=== PATIENT | female | born 1990 | race Two or more races ===

== ENCOUNTER 2025-10-05 12:42 | Outpatient (AMB) | payer OTHER, SELFPAY ==
--- NOTE | 2025-10-05 13:14 | A.OFFVIS_ITS ---
Intake Visit Reasons: Numbness and tingling HPI Comments Details: The patient is a 35 year old female presenting for evaluation of new-onset symptoms which began approximately one and a half months ago. She reports a constant, daily pressure and a burning sensation affecting half of her head, which she likens to a blow dryer held close to the skin. Associated symptoms include pressure behind her left eye with visual disturbances, left-sided numbness and loss of strength, difficulty grasping objects, and a jittery sensation in her leg. She also notes scalp sensitivity to the point where she has cut her hair and sometimes wears a beanie for comfort. Ufhg-onp-hwztduq pain medications and a trial of gabapentin have not provided relief. She has a history of migraines, but notes her prior episodes were different, characterized by light sensitivity and vomiting, and were not as fr equent. For these symptoms, the patient went to an emergency room and had a brain MRI, which was reportedly normal aside from a nonspecific stain . She had an eye exam about a month and a half ago, which was normal. Both of her parents suffer from migraines. She has children and is not planning any future pregnancies. Review of Systems Narrative - Neurological: Reports daily headaches with pressure and a burning sensation on one half of the head. - Reports associated left-sided numbness, loss of strength, and a jittery feeling in her leg. - Reports scalp sensitivity. - Reports a history of migraines with photophobia and emesis. - Ophthalmologic: Reports pressure behind her left eye and visual disturbances during headache episodes. - Denies other vision problems when not experiencing pressure. - Psychiatric: Reports feeling nervous and anxious. Physical Exam Neuro Other: Mental Status: Alert and oriented to person, place, and time. Normal attention. Normal spontaneous speech, fluency, and comprehension. No obvious issues with mood and memory. Affect is appropriate. Cranial Nerves: CN II: Visual fallon full to confrontation, visual acuity intact. CN III, IV, : Pupils equal, round, reactive to light and accommodation. Extraocular movements are normal. CN V: Facial sensation is normal. CN VII: Facial movements symmetrical. CN VIII: Hearing intact to bedside conversation is normal. CN IX, X: Palate elevates symmetrically. CN XI: Shoulder shrug and head turn symmetrical. CN XII: Tongue midline without atrophy or fasciculations. Motor: Bulk and tone normal in all extremities. No significant muscle weakness in arms and legs. No drift. Reflexes: Deep tendon reflexes 2+ and symmetric. Plantar response down-going bilaterally. Coordination: Iagleo-ac-ijry and waej-qy-poic testing normal. No dysmetria. Gait and Station: No obvious gait abnormality. No ataxia or instability. Sensory: Intact to light touch, pinprick, and vibration. Romberg is negative. Extrapyramidal: Full facial expressions and blinking. No rigidity. Movements are appropriate with no tremor or abnormality. Speech: Normal; no dysarthria or tremor. Assessment & Plan Assessment & Plan (1) Migraine without aura: Comment: MRI brain WO at [facility] in Jul 2025: Small arachnoid cyst in the R post fossa (reported) Code(s): G43.009 - Migraine without aura, not intractable, without status migrainosus Category: Medical Qualifiers: Status migrainosus presence: with status migrainosus Intractability: intractable Qualified Code(s): G43.011 - Migraine without aura, intractable, with status migrainosus (2) Migraine equivalent syndrome: Code(s): G43.109 - Migraine with aura, not intractable, without status migrainosus Category: Medical (3) Anxiety: Code(s): F41.9 - Anxiety disorder, unspecified Category: Medical Plan Impression: a: Migraine b: Migraine equivalent syndrome Rec: a: Education b: Topiramate 25mg BID I explained to the patient that her symptoms, including the burning sensation, pressure, numbness, and weakness, are all manifestations of migraine, which can present in many different ways and can mimic a stroke. I used the analogy of an inherited switch in the brain to explain the genetic basis of migraine and why she is experiencing these symptoms now. I reassured her that her condition is not life-threatening and that her brain scan was expected to be normal. I discussed that because her symptoms are occurring daily, she requires a preventative medication to be taken every day to keep the switch off and control her symptoms. We confirmed she is not planning any future pregnancies, making this treatment course appropriate for her. I advised her that I am prescribing a pill to be taken twice a day and instructed her to obtain a copy of her recent MRI on a CD for me to review. Medications: New topiramate 25 mg PO BID 180 tabs 0RF Coding Level of Care Code New Pt Level 4 (56033) Diagnoses Intractable migraine without aura and with status migrainosus G43.011 Status migrainosus presence: with status migrainosus Intractability: intractable Migraine equivalent syndrome G43.109 Anxiety F41.9
--- OUTSIDE RECORDS SUMMARY | 2025-10-05 14:18 | XMS_ITS | Patient Health Record ---
Author Organization [facility] Address [address] [place] [address] Care Team Providers Care Computational Geneticist Name Role Phone ADAM HANSON Unavailable [phone] Allergies Allergen (clinical drug ingredient) Drug/Non Drug Allergy documented on EMR Reaction Allergy Type Onset Date Status Latex Latex swelling Allergy Active morphine Morphine hives Drug Allergy Active Reason For Referral No Information Medications Medication SIG (Take, Route, Fr equency, Duration) Notes Start Date End Date Status Liletta Inserted 12/2017 Acti ve Social History Tobacco Use: Social History Observation Description Date Details (start date - stop date) Never Smoker NA - NA Tobacco Use/Smoking Question Answer Notes Are you a nonsmoker Alcohol Screen (Audit-C) Question Answer Notes Did you have a drink containing alcohol in the p ast year? No Points 0 Interpretation Negative Sexual History Question Answer Notes Had sex in the past 12 months (vaginal, oral, or anal)? Yes with Men only Use protection? Yes How often? All of the time Have you ever had a Sexually transmitted disease ? No Problems Problem Type SNOMED Code ICD Code Onset Dates Problem Status W/U Status Risk Notes Problem Postcoital bleeding (15583199) Postcoital and contact bleeding (N93.0) Active confirmed Plan Of Treatment Pending Test Test Name Order Date ULTRASOUND: PELVIC W/TRANSVAGINAL 2020 Insurance Providers Payer Name Payer Address Payer Phone Subscriber Number Group Number Insured Name Patient Relationship to Insured Coverage Start Date Coverage End Date [facility] [employer] [facility] [address] [address] [place] [address] [id number] MARQUIS BURNS Self - patient is the insured Medical (General) History Surgical History Surgery Date(Month/Year) knee ligament repair (R) 2006 DxC, blood transfusion 2014 Venogram of Pelvis L side 06/2021 Hospitalization History Reason Date(Month/Year) See surgical/obstetrical Hx
--- OUTSIDE RECORDS SUMMARY | 2025-10-05 14:18 | XMS_ITS | Clinical Summary ---
Author Organization [facility] 230 [facility] lding Address 230 [facility] [place] [address] Phone Care Team Providers Care Manager Configuration Name Role Phone Zora Le MD Primary Care Provider Allergies Active Allergy Reactions Criticality Noted Date Comments Latex Swelling 12/19/2020 Latex agent Morphine Swelling 12/19/2020 Oxycodone-Acetaminophen Swelling 12/19/2020 Medications levonorgestreL (Liletta) 20.4 mcg/24 hr (8 yrs) 52 mg intrauterine device IUD by Intrauterine route. Active gabapentin (NEURONTIN) 100 mg capsuleIndicatio ns:Pain of left side of body,Burning pain Take 1 capsule (100 mg total) by mouth 1 (one) time each day if needed (Pain). 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 Leg edema, left 12/19/2020 Encounters Date Type Department Care Team Description 09/19/2025 3:45 PM EST Office Visit Adult Medicine [facility] [address] [place] [address] Zora Le MD Hair follicle infection (Primary Dx) 09/14/2025 Telephone Adult Medicine [facility] [address] [place] [phone] Zora Le MD 09/12/2025 9:30 AM EST Office Visit Vascular Surgery - [place] [address] [facility] [address] [place] [address] Murali Feliciano MD May-Thurner syndrome (Primary Dx); Varicose veins of leg with swelling, bilateral 07/20/2025 6:05 PM EDT - 07/20/2025 11:59 PM EDT Hospital Encounter Radiology Department - [address] [address] Muscle weakness of left upper extremity; Pain of left side of body Discharge Disposition: Home or Self Care 07/14/2025 Results Follow-Up [address] [address] Lefty Wilson PA 07/13/2025 3:30 PM EDT Office Visit [address] [address] Lefty Wilson PA Muscle weakness of left upper extremity (Primary Dx); Pain of left side of body; Burning pain 07/13/2025 Results Follow-Up [address] [address] Chava Noe RN 07/12/2025 12:19 PM EDT - 07/12/2025 11:59 PM EDT Hospital Encounter [facility] [address] [place] [id number] Pain Discharge Disposition: Home or Self Care 07/12/2025 Telephone Vascular Surgery [facility] [address] [phone] Murali Feliciano MD 07/11/2025 1:00 PM EDT Office Visit [address] [address] Zora Le MD Numbness and tingling (Primary Dx); Mottled skin; Screening for diabetes mellitus; Localized swelling of left lower leg; Neck pain 07/11/2025 Results Follow-Up [address] [address] Zora Le MD from Last 3 Months Immunizations Immunization Administration Dates Next Due HPV, Quadrivalent 02/10/2015 Influenza Quadravalent, MDCK , 0.5ml, preservative free (Flucelvax) 6mo and older 08/11/2018 Influenza trivalent, with pr eservative (Fluzone; Afluria) 6mo and older 08/03/2014,07/27/2013,06/26/2011 Tdap Tetanus diptheria acell ular pertussis (Boostrix; Adacel) 7yo and older 06/24/2013,10/05/2011 Surgical History Surgery Date Site/Laterality Comments KNEE ARTHROSCOPY W/ MENISCAL REPAIR 2006 Right PROCEDURE: [place] ARTHROSCOPY KNEE W/MENISCUS RPR MEDIAL/LATERAL Medical History Medical History Date Comments May-Thurner syndrome DX:February-Thur ner syndrome Lymphedema DX:Lymphedema Family History Medical History Relation Name Comments Hypertension Mother Other: clotting disorder Mother's side Gr eat Grandmother Breast cancer Paternal Grandmother Other: von Willebrand Son Relation Name Status Comments Brother Alive Father Alive Mother Alive Mother's side Paternal Grandmother Sister Alive Son Social History Tobacco Use Types Packs/Day Years Used Date Smoking Tobacco: Never Smokeless Tobacco: Never Tobacco Cessation:Counseling Given: Not Answered Alcohol Use Standard Drinks/Week Comments Not Currently 0 (1 standard drink = 0.6 oz pur e alcohol) Comments No Sex and Gender Information Value Date Recorded Sex Assigned at Not on file Legal Sex Female 2:10 PM EST Gender Identity Not on file Sexual Orientation Not on file Last Filed Vital Signs Vital Sign Reading Time Taken Comments Blood Pressure 116/62 09/19/2025 3:30 PM EST Pulse 72 09/19/2025 3:30 PM EST Temperature 36.1 C (97 F) 09/19/2025 3:30 PM EST Respiratory Rate 16 09/19/2025 3:30 PM EST Oxygen Saturation - - Inhaled Oxygen Concentration - - Weight 96.6 kg (213 lb) 09/19/2025 3:30 PM EST Height 161 cm (5' 3.39 ) 09/19/2025 3:30 PM EST Body Mass Index 37.27 09/19/2025 3:30 PM EST Plan of Treatment Upcoming Encounters Date Type Department Care Team (Late st Contact Info) Description 10/20/2025 8:30 AM EST Ancillary Procedure [facility] [address] [place] [address] 10/21/2025 11:30 AM EST Office Visit Vascular Surgery - [place] [address] [place] [address] Murali Feliciano MD [address] [place] [address] 10/25/2025 1:00 PM EST Office Visit Adult Medicine - [place] [address] [place] [address] Zora Le MD [address] [place] [address] Health Maintenance Due Date Last Done Comments Hepatitis B Vaccines (1 of 3 - 19+ 3-dose series) 2010 Cervical Cancer Screening: Pap Smear 02/09/2012 HPV Vaccines (2 - 3-dose series) 03/10/2015 02/10/2015 HIV Screening 09/04/2022 Hepatitis C Screening 09/04/2022 Social Influencers of Health Screening 09/04/2022 DTaP,Tdap,and Td Vaccines (3 - Td or Tdap) 06/24/2023 06/24/2013, 10/05/2011 Depression Screening 10/06/2024 COVID-19 Vaccine ( season) 2025 RSV Immunization Adult Patients (1 - 1-dose 75+ series) 2066 Influenza Vaccine Discontinued 08/11/2018, , 07/27/2013, Additional history exists HIB Vaccines Aged Out No longer eligi ble based on patient's age to complete this topic Hepatitis A Vaccines Aged Out No long er eligible based on patient's age to complete this topic IPV Vaccines Aged Out No longer eligi ble based on patient's age to complete this topic MMR Vaccines Aged Out No longer eligi ble based on patient's age to complete this topic Meningococcal ACWY Vaccine Aged Out N o longer eligible based on patient's age to complete this topic Meningococcal B Vaccine Aged Out No l onger eligible based on patient's age to complete this topic Pneumococcal Vaccine: Pediatrics (0 to 5 Years) and At-Risk Patients (6 to 49 Years) Aged Out No longer eligible based on patient's age to complete this topic RSV Immunization Patients Under 20 months Aged Out No longer eligible based on patient's age to complete this topic Varicella Vaccines Aged Out No longer eligible based on patient's age to complete this topic Procedures Procedure Name Priority Date/Time Associated Diagnosis Comments MR BRAIN WO CONTRAST Routine 07/20/2025 6:45 PM EDT Muscle weakness of left upper extremity Pain of left side of body BORRELIA BURGDORFERI ANTIBODY Routine 07/13/2025 4:04 PM EDT Muscle weakness of left upper extremity Pain of left side of body JEN IFA WITH TITER AND PATTERN Routine 07/13/2025 4:04 PM EDT Muscle weakness of left upper extremity Pain of left side of body XR CERVICAL SPINE 4-5 VIEWS Routine 07/12/2025 12:24 PM EDT Pain CBC WITH AUTO DIFFERENTIAL Routine 07/11/2025 1:41 PM EDT Numbness and tingling Mottled skin Screening for diabetes mellitus VITAMIN B12 Routine 07/11/2025 1:41 PM EDT Numbness and tingling Mottled skin Screening for diabetes mellitus HEMOGLOBIN A1C Routine 07/11/2025 1:41 PM EDT Numbness and tingling Mottled skin Screening for diabetes mellitus THYROID STIMULATING HORMONE WITH REFLEX TO FREE T4 AND FREE T3 Routine 07/11/2025 1:41 PM EDT Numbness and tingling Mottled skin Screening for diabetes mellitus COMPREHENSIVE METABOLIC PANEL Routine 07/11/2025 1:41 PM EDT Numbness and tingling Mottled skin Screening for diabetes mellitus CBC AND DIFFERENTIAL Routine 07/11/2025 1:41 PM EDT Numbness and tingling Mottled skin Screening for diabetes mellitus from Last 3 Months Results * MR Brain wo Contrast (07/20/2025 6:45 PM EDT) Anatomical Region Laterality Modality Head and Neck Magnetic Resonan ce 07/22/2025 4:55 PM EDT Narrative 07/22/2025 5:01 PM EDT MRI of the head without intravenous contrast. History neuropathy. Transient weakness in the left upper extremity. Examination was performed on 1.5 Jessica magnet without administration of the intravenous contrast. No prior MRI examinations are available for comparison. There is no evidence of midline shift, extra or intra-axial blood or fluid collections. There is a fluid signal intensity structure in the right paramedian location in the posterior fossa abutting the right cerebellar hemisphere measuring 1.8 x 0.8 cm most likely representing small arachnoid cyst. There is no visible masses or mass effect in the brain and cerebellum. Ventricular system is symmetric and normal in size. Fourth ventricle and basal cisterns are midline and patent. There is no focal areas of restricted diffusion or abnormal foci of magnetic susceptibility artifact. Paranasal sinuses and mastoid processes are aerated. CONCLUSIONS: Small arachnoid cyst in the right paramedian posterior fossa as detailed. No other focal MRI abnormalities in the brain and cerebellum. -------- FINAL REPORT -------- Dictated By: Jessica Arias Dictated Date: 07/22/2025 16:55 ET Assigned Physician: Jessica Arias Reviewed and Electronically Signed By: Jessica Arias Signed Date: 07/22/2025 17:01 ET Workstation ID: [id number] Transcribed By: Self Edit Transcribed Date: 07/22/2025 16:55 ET Procedure Note Jessica Arias MD - 07/22/2025 MRI of the head without intravenous contrast. History neuropathy. Transient weakness in the left upper extremity. Examination was performed on 1.5 Jessica magnet without administration ofthe intravenous contrast. No prior MRI examinations are available forcomparison. There is no evidence of midline shift, extra or intra-axial blood or fluidcollections. There is a fluid signal intensity structure in the rightparamedian location in the posterior fossa abutting the right cerebellarhemisphere measuring 1.8 x 0.8 cm most likely representing small arachnoidcyst. There is no visible masses or mass effect in the brain andcerebellum. Ventricular system is symmetric and normal in size. Fourthventricle and basal cisterns are midline and patent. There is no focal areas of restricted diffusion or abnormal foci ofmagnetic susceptibility artifact. Paranasal sinuses and mastoid processes are aerated. CONCLUSIONS: Small arachnoid cyst in the right paramedian posterior fossaas detailed. No other focal MRI abnormalities in the brain andcerebellum. -------- FINAL REPORT -------- Dictated By: Jessica Arias Dictated Date: 07/22/2025 16:55 ET Assigned Physician: Jessica Arias Reviewed and Electronically Signed By: Jessica Arias Signed Date: 07/22/2025 17:01 ET Workstation ID: [id number] Transcribed By: Self Edit Transcribed Date: 07/22/2025 16:55 ET Lefty THOMAS IMG MRI PROCEDURES Final Resu lt * JEN IFA with titer and pattern (07/13/2025 4:04 PM EDT) [facility] JEN Negative Negative 07/14/2025 10:48 AM EDT [facility] Comment:JEN performed by ind irect immunofluorescence (IFA) using HEp-2 substrate. Blood Venous blood specimen / Unknown Venipuncture / Unknown 07/13/2025 4:04 PM EDT 07/13/2025 4:04 PM EDT us Lefty THOMAS LAB BLOOD ORDERABLES Final Re sult [facility] [address] [place] [address], [place] [phone] * Borrelia burgdorferi antibody (07/13/2025 4:04 PM EDT) Lyme Ab Negative Negative LAB CHEMISTRY METHOD 07/14/2025 7:57 AM EDT [facility] Comment: No laboratory evidence of infection with B. burgdorferi (Lyme disease). Negative results may occur in patients recently infected (<=14 days) with B. burgdorferi. If recent infection is suspected, repeat testing on a new sample collected in 7- 14 days is recommended. Blood Venous blood specimen / Unknown Venipuncture / Unknown 07/13/2025 4:04 PM EDT 07/13/2025 4:04 PM EDT us Lefty THOMAS LAB BLOOD ORDERABLES Final Re sult [facility] [address] [place] [address], [place] [phone] * XR Cervical Spine 4-5 Views (07/12/2025 12:24 PM EDT) Anatomical Region Laterality Modality Spine, C-spine Radiographic Elizabeth ging 07/12/2025 4:52 PM EDT Impressions 07/12/2025 4:52 PM EDT Normal study. -------- FINAL REPORT -------- Dictated By: Hattie King Dictated Date: 07/12/2025 16:52 ET Assigned Physician: Hattie King Reviewed and Electronically Signed By: Hattie King Signed Date: 07/12/2025 16:52 ET Workstation ID: [id number] Transcribed By: Self Edit Transcribed Date: 07/12/2025 16:52 ET Narrative 07/12/2025 4:52 PM EDT CERVICAL SPINE, 4 VIEWS HISTORY: Neck pain. No injury. FINDINGS: There is normal alignment of the cervical spine. No fracture or dislocation is seen. The paravertebral soft tissues are unremarkable. No degenerative changes are seen. Procedure Note Hattie King MD - 07/12/2025 CERVICAL SPINE, 4 VIEWS HISTORY: Neck pain. No injury. FINDINGS: There is normal alignment of the cervical spine. No fracture ordislocation is seen. The paravertebral soft tissues are unremarkable. Nodegenerative changes are seen. IMPRESSION: Normal study. -------- FINAL REPORT -------- Dictated By: Hattie King Dictated Date: 07/12/2025 16:52 ET Assigned Physician: Hattie King Reviewed and Electronically Signed By: Hattie King Signed Date: 07/12/2025 16:52 ET Workstation ID: [id number] Transcribed By: Self Edit Transcribed Date: 07/12/2025 16:52 ET us Zora Le MD IMG XR PROCEDURES Kandis l Result * Thyroid stimulating hormone with reflex to free t4 and free t3 (07/11/2025 1:41 PM EDT) [facility] TSH 1.76 0.40 - 4.00 mcIU/mL LAB CHEMISTRY METHOD 07/11/2025 4:27 PM EDT [facility] Blood Venous blood specimen / Unknown Venipuncture / Unknown 07/11/2025 1:41 PM EDT 07/11/2025 1:41 PM EDT us Zora Le MD LAB BLOOD ORDERABLES F inal Result [facility] [address] [place] [address], [place] [phone] * CBC auto differential (07/11/2025 1:41 PM EDT) [facility] WBC 6.4 4.8 - 10.8 K/[facility] LAB HEMETOLOGY METHOD 07/11/2025 2:49 PM EDT [facility] RBC 4.00 3.80 - 4.80 M/mcL LAB HEMETOLOGY METHOD 07/11/2025 2:49 PM EDT [facility] Hemoglobin 12.3 11.5 - 16.0 g/dL LAB HEMETOLOGY METHOD 07/11/2025 2:49 PM EDT [facility] Hematocrit 37.5 35.0 - 47.0 % LAB HEMETOLOGY METHOD 07/11/2025 2:49 PM [facility] MCV 94.5 79.0 - 98.0 FL LAB HEMETOLOGY METHOD 07/11/2025 2:49 PM [facility] MCH 31.0 27.0 - 32.0 pcg LAB HEMETOLOGY METHOD 07/11/2025 2:49 PM [facility] MCHC 32.8 32.0 - 37.0 g/dL LAB HEMETOLOGY METHOD 07/11/2025 2:49 PM [facility] RDW 12.0 11.0 - 15.0 % LAB HEMETOLOGY METHOD 07/11/2025 2:49 PM [facility] Platelets 287 130 - 400 K/mcL LAB HEMETOLOGY METHOD 07/11/2025 2:49 PM [facility] MPV 9.7 7.0 - 11.0 FL LAB HEMETOLOGY METHOD 07/11/2025 2:49 PM [facility] NRBC 0.0 <1.0 % LAB HEMETOLOGY METHOD 07/11/2025 2:49 PM [facility] NRBC Absolute 0.00 <0.10 K/mcL LAB HEMETOLOGY METHOD 07/11/2025 2:49 PM [facility] Neutrophils Relative 61.3 % LAB HEMETOLOGY METHOD 07/11/2025 2:49 PM [facility] Lymphocytes Relative 28.1 % LAB HEMETOLOGY METHOD 07/11/2025 2:49 PM [facility] Monocytes Relative 7.3 % LAB HEMETOLOGY METHOD 07/11/2025 2:49 PM [facility] Eosinophils Relative 2.5 % LAB HEMETOLOGY METHOD 07/11/2025 2:49 PM EDT [facility] Basophils Relative 0.5 % LAB HEMETOLOGY METHOD 07/11/2025 2:49 PM EDT [facility] Immature Granulocytes Relative 0.3 % LAB HEMETOLOGY METHOD 07/11/2025 2:49 PM EDT [facility] Neutrophils Absolute 3.94 1.50 - 7.00 K/mcL LAB HEMETOLOGY METHOD 07/11/2025 2:49 PM EDT [facility] Lymphocytes Absolute 1.81 1.00 - 5.00 K/mcL LAB HEMETOLOGY METHOD 07/11/2025 2:49 PM EDT [facility] Monocytes Absolute 0.47 0.20 - 1.00 K/mcL LAB HEMETOLOGY METHOD 07/11/2025 2:49 PM EDT [facility] Eosinophils Absolute 0.16 0.00 - 0.50 K/mcL LAB HEMETOLOGY METHOD 07/11/2025 2:49 PM EDT [facility] Basophils Absolute 0.03 0.00 - 0.20 K/mcL LAB HEMETOLOGY METHOD 07/11/2025 2:49 PM EDT [facility] Immature Granulocytes Absolute 0.02 0.00 - 0.03 K/mcL LAB HEMETOLOGY METHOD 07/11/2025 2:49 PM EDT [facility] Blood Venous blood specimen / Unknown Venipuncture / Unknown 07/11/2025 1:41 PM EDT 07/11/2025 1:41 PM EDT us Zora Le MD LAB BLOOD ORDERABLES F inal Result [facility] [address] [place] [address], * Hemoglobin A1c (07/11/2025 1:41 PM EDT) Pathologist [facility] Hemoglobin A1C 4.8 <6.5 % LAB CHEMISTRY METHOD 07/11/2025 9:36 PM EDT [facility] Mean Bld Glu Estim. 91 mg/dL LAB CHEMISTRY METHOD 07/11/2025 9:36 PM EDT [facility] Blood Venous blood specimen / Unknown Venipuncture / Unknown 07/11/2025 1:41 PM EDT 07/11/2025 1:41 PM EDT us Zora Le MD LAB BLOOD ORDERABLES F inal Result Performing Organization Address City/[facility]/ZIP Co de Phone Number [facility] [address] [place] [address], [place] [phone] * (ABNORMAL) Vitamin B12 (07/11/2025 1:41 PM EDT) [facility] Vitamin B-12 1,147(H) 250 - 900 pcg/mL LAB CHEMISTRY METHOD 07/11/2025 4:02 PM EDT [facility] Blood Venous blood specimen / Unknown Venipuncture / Unknown 07/11/2025 1:41 PM EDT 07/11/2025 1:41 PM EDT us Zora Le MD LAB BLOOD ORDERABLES F inal Result [facility] [address] [place] [address], [place] [phone] * Comprehensive metabolic panel (07/11/2025 1:41 PM EDT) [facility] Sodium 135 133 - 145 mmol/L LAB CHEMISTRY METHOD 07/11/2025 4:02 PM EDT [facility] Potassium 4.4 3.5 - 5.5 mmol/L LAB CHEMISTRY METHOD 07/11/2025 4:02 PM EDT [facility] Chloride 103 96 - 110 mmol/L LAB CHEMISTRY METHOD 07/11/2025 4:02 PM [facility] CO2 27 21 - 32 mmol/L LAB CHEMISTRY METHOD 07/11/2025 4:02 PM [facility] Anion Gap 5 3 - 11 LAB CHEMISTRY METHOD 07/11/2025 4:02 PM [facility] Glucose 88 70 - 100 mg/dL LAB CHEMISTRY METHOD 07/11/2025 4:02 PM [facility] BUN 10 5 - 25 mg/dL LAB CHEMISTRY METHOD 07/11/2025 4:02 PM [facility] Creatinine 0.72 0.50 - 1.10 mg/dL LAB CHEMISTRY METHOD 07/11/2025 4:02 PM [facility] eGFR 113 >=60 mL/min/1. 73m2 LAB CHEMISTRY METHOD 07/11/2025 4:02 PM [facility] Comment:Calculation based on the Chronic Kidney Disease Epidemiology Collaboration (CKD-EPI) equation refit without adjustment for race. BUN/Creatinine Ratio 13.9 LAB CHEMISTRY METHOD 07/11/2025 4:02 PM [facility] Calcium 9.1 8.5 - 10.5 mg/dL LAB CHEMISTRY METHOD 07/11/2025 4:02 PM [facility] AST (SGOT) 14 10 - 42 unit/L LAB CHEMISTRY METHOD 07/11/2025 4:02 [facility] ALT (SGPT) 24 10 - 60 unit/L LAB CHEMISTRY METHOD 07/11/2025 4:02 PM [facility] Alkaline Phosphatase 57 42 - 121 unit/L LAB CHEMISTRY METHOD 07/11/2025 4:02 PM [facility] Total Protein 6.9 6.0 - 8.0 g/dL LAB CHEMISTRY METHOD 07/11/2025 4:02 PM [facility] Albumin 3.8 3.2 - 5.0 g/dL LAB CHEMISTRY METHOD 07/11/2025 4:02 PM EDT [facility] Total Bilirubin 0.4 0.0 - 1.4 mg/dL LAB CHEMISTRY METHOD 07/11/2025 4:02 PM EDT [facility] Blood Venous blood specimen / Unknown Venipuncture / Unknown 07/11/2025 1:41 PM EDT 07/11/2025 1:41 PM EDT us Zora Le MD LAB BLOOD ORDERABLES F inal Result [facility] [address] [place] [address], [place] [phone] from Last 3 Months Insurance [facility] [employer] Care Teams Manager Configuration Relationship Specialty Start Date End Date Zora Le MD [address] [place] [address] [facility] [place] [id number] PCP - General 10/08/22
== END 2025-10-05 13:34 | disposition home or self-care (01) ==
LOC: HO.HSM 12:42
PROVIDERS: PCP Family Medicine; Visit Provider Psychiatry & Neurology Neurology
DX: G43.011 Migraine without aura, intractable, with status migrainosus (principal); G43.109 Migraine with aura, not intractable, without status migrainosus; F41.9 Anxiety disorder, unspecified
CPT/HCPCS: 99204

== ENCOUNTER → 2025-10-05 12:42 | Outpatient (BNVA) | payer OTHER, SELFPAY | PROVIDERS: PCP Family Medicine; Visit Provider Psychiatry & Neurology Neurology | DX: G43.011 Migraine without aura, intractable, with status migrainosus (principal); G43.109 Migraine with aura, not intractable, without status migrainosus; F41.9 Anxiety disorder, unspecified; R20.0 Anesthesia of skin; R53.1 Weakness | CPT/HCPCS: 99202 ==